=== PATIENT | female | born 1975 | race American Indian/Alaskan Native ===

== ENCOUNTER → 2019-04-01 | Emergency (ER) | payer BC, OTHER ==
[~2019-04-01] VITALS: Ht 165.1 cm; Wt 81.8 kg
[~2019-04-01] MED LIST: COL100C PO; CefTRIAXone 1000mg IM Kit (w/lidocaine diluent) IM ONE; PRED20TA PO; azithromycin 250mg tablet PO ONE
[2019-04-01 06:04] VITALS: BP 135/82
--- NOTE | 2019-04-01 06:53 | NUR ---
PCT entered pt room to ask pt to get into a hospital gown for physical examination by . Her and her S/O were arguing and told PCT that they were leaving. Attempted to go to pt room but she had already left ED. Pt ambulated out of dept with steady gait.
== END | disposition left against medical advice (07) ==
LOC: ER 06:00
DX: Z20.2 Contact with and (suspected) exposure to infections with a predominantly sexual mode of transmission (principal); H57.89 Other specified disorders of eye and adnexa; F15.10 Other stimulant abuse, uncomplicated; Z79.899 Other long term (current) drug therapy; Z72.89 Other problems related to lifestyle
CPT/HCPCS: 99281

== ENCOUNTER 2023-07-23 05:14 | Emergency (ER) | payer BC ==
[~2023-07-23] VITALS: Ht 160 cm; Wt 93.2 kg
[~2023-07-23 05:14] MED LIST changes: -CefTRIAXone 1000mg IM Kit (w/lidocaine diluent) IM ONE; -azithromycin 250mg tablet PO ONE
[2023-07-23 05:16] VITALS: TEMP 97.9
[2023-07-23] MEDS ORDERED: TETanus/Pertussis (Acell)/Diphther VAC/PF (Tdap-Adult) 0.5ml syringe IMVAC ONE (05:45)
[2023-07-23] MEDS ORDERED: morphine 4 MG/ML inj SYRINge IV ONE (06:00)
[2023-07-23] MEDS ORDERED: ondansetron/PF 4mg/2ml inj IV ONE (06:00)
[2023-07-23] MEDS: morphine 4 MG/ML inj SYRINge IV ONE (06:25)
[2023-07-23] MEDS: ondansetron/PF 4mg/2ml inj IV ONE (06:25)
[2023-07-23] MEDS: TETanus/Pertussis (Acell)/Diphther VAC/PF (Tdap-Adult) 0.5ml syringe IMVAC ONE (06:26)
[2023-07-23 06:53] LABS: BASOPHILS # (AUTO) 0.1 X10'3 (0-0.2); BASOPHILS % (AUTO) 0.3 % (0-1); EOSINOPHILS % (AUTO) 0 % (0-6); HEMATOCRIT 29.1 % (35.0-45.0); LYMPHOCYTES # (AUTO) 1.4 X10'3 (1.1-4.8); LYMPHOCYTES % (AUTO) 6.7 % (21-51); MEAN CORPUSCULAR HEMOGLOBIN 21.5 PG (27.0-31.0); MEAN CORPUSCULAR HGB CONC 30.8 g/dL (33.0-36.5); MEAN CORPUSCULAR VOLUME 69.6 FL (78-98); MEAN PLATELET VOLUME 9.3 FL (7.4-10.4); MONOCYTES # (AUTO) 1.2 X10'3 (0-0.9); MONOCYTES % (AUTO) 5.6 % (2-12); NEUTROPHILS # (AUTO) 18.5 X10'3 (1.8-7.7); NEUTROPHILS % (AUTO) 87.4 % (42-75); PLATELET COUNT 349 X10'3 (140-440); RED BLOOD COUNT 4.18 X10'6 (4.20-5.60); RED CELL DISTRIBUTION WIDTH 18.1 % (11.5-14.5); WHITE BLOOD COUNT 21.2 X10'3 (4.5-11.0)
[2023-07-23 07:01] LABS: ALANINE AMINOTRANSFERASE 29 U/L (12-78); ALBUMIN 3.5 G/DL (3.4-5.0); ALBUMIN/GLOBULIN RATIO 0.9 (1.1-1.5); ALKALINE PHOSPHATASE 68 IU/L (46-116); ANION GAP 12 (8-16); ASPARTATE AMINO TRANSFERASE 20 U/L (10-37); BILIRUBIN,TOTAL 0.4 MG/DL (0.1-1.0); BLOOD UREA NITROGEN 16 MG/DL (7-18); CALCIUM 8.3 MG/DL (8.5-10.1); CHLORIDE 105 MMOL/L (99-107); CREATININE 0.94 MG/DL (0.40-0.90); GLUCOSE 108 MG/DL (70-104); LIPASE 15 U/L (16-77); POTASSIUM 3.7 MMOL/L (3.5-5.1); SODIUM 141 MMOL/L (135-145); TOTAL CARBON DIOXIDE 24.4 MMOL/L (24-32); TOTAL PROTEIN 7.3 G/DL (6.4-8.2); eCRCL 61 ML/MIN; eGFR 64 ML/MIN
[2023-07-23 08:04] LABS: APTT 25 SECONDS (22-32); PROTHROMBIN TIME 10.9 SECONDS (9.0-12.0)
[2023-07-23 08:30] LABS: ANISOCYTOSIS 2+; ELLIPTOCYTES 1+; MICROCYTOSIS 2+; PLATELET ESTIMATE NORMAL
[2023-07-23 08:31] LABS: LARGE PLATELETS FEW
[2023-07-23] MEDS ORDERED: HYDR-3973 PO (10:39)
[2023-07-23 11:07] VITALS: BP 114/71; PULSE 68; RESP 16; O2SAT 98
== END 2023-07-23 11:08 | disposition home or self-care (01) ==
LOC: EEVIPCON 05:14 → ER 05:14
DX: S32.2XXA Fracture of coccyx, initial encounter for closed fracture (principal); S01.01XA Laceration without foreign body of scalp, initial encounter; F15.90 Other stimulant use, unspecified, uncomplicated; Z79.52 Long term (current) use of systemic steroids; Z79.899 Other long term (current) drug therapy; Z72.89 Other problems related to lifestyle; Y04.2XXA Assault by strike against or bumped into by another person, initial encounter; Y93.89 Activity, other specified; Y92.89 Other specified places as the place of occurrence of the external cause; Y99.8 Other external cause status
CPT/HCPCS: 12001; 36415; 70450; 70486; 72125; 72192; 80053; 83690; 85008; 85025; 85610; 85730; 90471; 90715; 96374; 96375; 99291; J2270; J2405

== ENCOUNTER 2023-09-13 17:14 | Emergency (ER) | payer BC ==
[~2023-09-13] VITALS: Ht 160 cm; Wt 93.0 kg
[2023-09-13 17:25] VITALS: BP 136/74; PULSE 89; TEMP 97.6; O2SAT 100
[2023-09-13] MEDS ORDERED: SULF1TAB49 PO (18:29)
[2023-09-13 18:44] VITALS: RESP 18
== END 2023-09-13 18:48 | disposition home or self-care (01) ==
LOC: ER 17:15
DX: L72.0 Epidermal cyst (principal); F15.90 Other stimulant use, unspecified, uncomplicated; Z79.899 Other long term (current) drug therapy
CPT/HCPCS: 99284